=== PATIENT | female | born 1995 | race Caucasian/White ===

== ENCOUNTER 2017-04-30 12:01 | Emergency (ER) | payer BC ==
[2017-04-30] MEDS ORDERED: Albuterol/Ipratropium NEB.SOL* Albuterol 2.5 MG/Ipratropium 0.5 MG 3 ML INH ONE (13:38)
--- NOTE | 2017-04-30 13:42 | UC ---
Travis Valencia Nilda, scribed for Mercedes Hardin MD on 04/30/17 at 1338 . Respiratory Complaint HPI - HPI Summary HPI Summary: This patient is a 21 year old F [place] [facility] [place] chief complaint of constant upper respiratory symptoms for the past few days. The patient rates the aching, burning pain 6/10 in severity. Symptoms aggravated by lying down, and alleviated by Nettipot and OTC medications (Mucinex, Sudafed, and Nyquil). Patient reports cough, sore throat, congestion, and dyspnea, but denies fever, chills, and myalgia. Pt states recent contacts with teammates who are positive for PNA and flu. Last abx one month ago for sinus infection. 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 - History of Current Complaint Chief Complaint: UCGeneralIllness Stated Complaint: CONGESTED, COUGH Time Seen by Provider: 04/30/17 13:24 Hx Obtained From: Patient Hx Last Menstrual Period: 04/30/17 Onset/Duration: Sudden Onset, Lasting Days, Still Present Timing: Constant Severity Currently: Moderate Pain Intensity: 6 Pain Scale Used: 0-10 Numeric Character: Cough: Nonproductive Aggravating Factors: Recumbent Position Alleviating Factors: OTC Meds, Other - Nettipot Associated Signs And Symptoms: Positive: Nasal Congestion. Negative: Fever, Chills - Allergies/Home Medications Allergies/Adverse Reactions: Allergies Allergy/AdvReac Type Severity Reaction Status Date / Time No Known Allergies Allergy Verified 06/27/16 21:12 PMH/Surg Hx/FS Hx/Imm Hx Previously Healthy: Yes Respiratory History: Bronchitis - Surgical History Surgical History: None - Family History Known Family History: Negative: Diabetes - Social History Occupation: Student Lives: Dormitory/Roommates Alcohol Use: None Substance Use Type: None Smoking Status (MU): Never Smoked Tobacco Review of Systems Constitutional: Other - negative fever, chills Skin: Negative Eyes: Negative ENT: Sore Throat, Sinus Congestion Respiratory: Cough, Other - dyspnea Gastrointestinal: Negative Genitourinary: Negative Motor: Negative Neurovascular: Negative Musculoskeletal: Other: - negative myalgia All Other Systems Reviewed And Are Negative: Yes Physical Exam Triage Information Reviewed: Yes Appearance: Well-Appearing, No Pain Distress, Well-Nourished, Other: - coarse, intermittent cough Vital Signs: Initial Vital Signs Temp 97.8 F 04/30/17 12:12 Pulse 69 04/30/17 12:12 Resp 16 04/30/17 12:12 BP 120/64 04/30/17 12:12 Pulse Ox 100 04/30/17 12:12 Vital Signs Reviewed: Yes Eye Exam: Normal Eyes: Positive: Conjunctiva Clear ENT: Positive: Other - mild fluid tm R>L turbinates inflammed, boggy + pND no exudate, no erythema uvula midline Dental Exam: Normal Neck exam: Normal Neck: Positive: Supple, Nontender, No Lymphadenopathy Respiratory Exam: Normal Respiratory: Positive: Chest non-tender, Wheezing, Other: - scattered wheeze, no rhonchi Cardiovascular Exam: Normal Cardiovascular: Positive: RRR, No Murmur Abdominal Exam: Normal Abdomen Description: Positive: Nontender, No Organomegaly, Soft Bowel Sounds: Positive: Present Musculoskeletal Exam: Normal Neurological Exam: Normal Neurological: Positive: Alert Psychological Exam: Normal Skin Exam: Normal UC Diagnostic Evaluation - Laboratory O2 Sat by Pulse Oximetry: 100 Re-Evaluation - Re-Evaluation First Eval Comment: Pt reports mild improvement following neb. flu neg. will give prophylatic tamiflu. flonase. steroid. hydrate. motrin/apap. secretion precaution. spoke with pt at length. Will give Rx for z pack - if not better in 48 hours pt will start. pt comfortable and agreement with plan Respiratory Course/Dx - Course Course Of Treatment: pt with 2 days coarse cough, wheeze, congestion and sore throat. no fevers, myaglia. pt with wheeze on exam. will give neb. check flu - Differential Dx/Diagnosis Provider Diagnoses: upper resp infection Discharge - Discharge Plan Condition: Stable Disposition: HOME Prescriptions: Albuterol HFA INHALER* [Ventolin HFA Inhaler*] 1 puff INH Q4H PRN #1 mdi PRN Reason: wheeze Azithromycin TAB* [Zithromax TAB (Z-MAMTA) 250 mg #6 tabs] 2 tab PO .TODAY, THEN 1 DAILY #1 mamta Benzonatate CAP* [Tessalon 100 MG CAP*] 100 mg PO TID #30 cap Oseltamivir CAP* [Tamiflu CAP*] 75 mg PO DAILY #10 cap predniSONE TAB* [Deltasone TAB*] 50 mg PO DAILY #5 tab Patient Education Materials: Upper Respiratory Infection (ED) Forms: *School Release Referrals: No Primary Care Phys,NOPCP [Primary Care Provider] - Additional Instructions: STay well hydrated. Drink plenty of non-alcoholic, non-caffinated beverages - Take tamiflu daily for prevention of flu - USe inhaler - 2 puffs every 4 hours today, then eveyr 4 hours as needed - Take prednisone once daily x 5 days - Okay to use over the counter medication for cough - if your symptoms are not improved in 48 hours,okay to take antibiotics as prescribed - After you have been on antibiotics for 2 days - change your toothbrush and your pillowcase. These infections are spread by secrtions - do NOT share eating or drinking utensils - clean items you share with other people such as iphone, computer mouse, TV remote, etc - Alternate ibuprofen (Advil, motrin) 600mg and tylenol eveyry 3 hours for pain or fever. - Get plenty of restful sleep The documentation as recorded by the Travis cardenas Nilda accurately reflects the service I personally performed and the decisions made by me, Mercedes Hardin MD.
[2017-04-30 14:23] VITALS: BP 139/79
== END 2017-04-30 14:29 | disposition home or self-care (01) ==
LOC: UCEAST 12:01
DX: J06.9 Acute upper respiratory infection, unspecified (principal)
CPT/HCPCS: 87502; 99212; A9270-GY; G0463

== ENCOUNTER 2017-08-04 18:37 | Emergency (ER) | payer BC ==
[2017-08-04 18:47] VITALS: BP 124/87
--- NOTE | 2017-08-04 19:44 | UC ---
Respiratory Complaint HPI - HPI Summary HPI Summary: 21 yo female with a 5 day hx of sinus pressure and pain sore throat cough fever at onset - History of Current Complaint Chief Complaint: UCGeneralIllness Stated Complaint: SINUS CONGESTION Time Seen by Provider: 08/04/17 19:33 Hx Obtained From: Patient Hx Last Menstrual Period: 07/23/2017 Onset/Duration: Gradual Onset, Lasting Days Timing: Constant Severity Initially: Moderate Severity Currently: Moderate Pain Intensity: 6 Pain Scale Used: 0-10 Numeric Character: Cough: Productive Aggravating Factors: Nothing Alleviating Factors: Nothing Associated Signs And Symptoms: Positive: URI, Nasal Congestion, Sinus Discomfort - Allergies/Home Medications Allergies/Adverse Reactions: Allergies Allergy/AdvReac Type Severity Reaction Status Date / Time No Known Allergies Allergy Verified 06/27/16 21:12 Home Medications: Home Medications Norethindrone-E.estradiol-Iron [Loestrin Fe 1-20 Tablet] 08/04/17 [History] guaiFENesin [Mucinex] 600 mg PO 08/04/17 [History] PMH/Surg Hx/FS Hx/Imm Hx Previously Healthy: Yes Respiratory History: Bronchitis, Pneumonia - Surgical History Surgical History: None - Family History Known Family History: Positive: Hypertension Negative: Diabetes - Social History Alcohol Use: Weekly Substance Use Type: None Smoking Status (MU): Never Smoked Tobacco Review of Systems Constitutional: Fever, Chills Skin: Negative Eyes: Negative ENT: Sore Throat, Ear Ache, Nasal Discharge, Sinus Congestion, Sinus Pain/ Tenderness Respiratory: Cough Cardiovascular: Negative Gastrointestinal: Negative Genitourinary: Negative Motor: Negative Neurovascular: Negative Musculoskeletal: Negative Neurological: Negative Psychological: Negative Is Patient Immunocompromised?: No All Other Systems Reviewed And Are Negative: Yes Physical Exam Triage Information Reviewed: Yes Appearance: Well-Appearing, No Pain Distress, Well-Nourished Vital Signs: Initial Vital Signs Temp 97.9 F 08/04/17 18:42 Pulse 53 08/04/17 18:42 Resp 16 08/04/17 18:42 BP 124/87 08/04/17 18:42 Pulse Ox 100 08/04/17 18:42 Vital Signs Reviewed: Yes Eyes: Positive: Conjunctiva Clear ENT: Positive: Hearing grossly normal, Nasal congestion, Nasal drainage, TMs normal, Sinus tenderness, Uvula midline. Negative: Tonsillar swelling, Tonsillar exudate, Hoarse voice, Dental tenderness Neck: Positive: Supple, Nontender, No Lymphadenopathy Respiratory: Positive: No respiratory distress, No accessory muscle use, Wheezing - with forced expiration Cardiovascular: Positive: RRR, No Murmur Musculoskeletal: Positive: ROM Intact, No Edema Neurological: Positive: Alert Psychological Exam: Normal Skin Exam: Normal UC Diagnostic Evaluation - Laboratory O2 Sat by Pulse Oximetry: 100 - normal/not hypoxic Respiratory Course/Dx - Differential Dx/Diagnosis Provider Diagnoses: acute sinusitis. acute bronchitis Discharge - Sign-Out/Discharge Documenting (check all that apply): Discharge/Admit/Transfer - Discharge Plan Condition: Stable Disposition: HOME Prescriptions: Azithromycin TAB* [Zithromax TAB*] 250 mg PO DAILY #6 tab Benzonatate CAP* [Tessalon CAP*] 100 - 200 mg PO TID PRN #28 cap PRN Reason: Cough Patient Education Materials: Sinusitis (ED), Acute Bronchitis (ED) Referrals: No Primary Care Phys,NOPCP [Primary Care Provider] - Additional Instructions: recheck in 5 days if not markedly improved flonase - Billing Disposition and Condition Condition: STABLE Disposition: HOME
== END 2017-08-04 19:47 | disposition home or self-care (01) ==
LOC: UCEAST 18:37
DX: J01.90 Acute sinusitis, unspecified (principal); J20.9 Acute bronchitis, unspecified
CPT/HCPCS: 99212; G0463